=== PATIENT | female | born 1965 | race Caucasian/White ===

== ENCOUNTER 2025-04-01 09:55 | Day surgery (SDC) | payer OTHER ==
[2025-04-01] MEDS ORDERED: LIDOCAINE HCL 2% 100 MG/5 ML IJ ONE (09:56)
[2025-04-01] MEDS ORDERED: methylPREDNISolone acetate IM ONE (09:56)
[2025-04-01] MEDS ORDERED: propofoL IV ONE (12:40)
[2025-04-01] MEDS ORDERED: Lactated Ringers 1,000 ML IV ONE (13:58)
--- NOTE | 2025-04-01 14:30 | XRAY ---
Indication: Bilateral L4-S1 MBB. Intraoperative fluoroscopy provided for 13 seconds. 2 digital spot image submitted for interpretation demonstrates posterior needle tips projecting over expected left and right L4-S1 nerve roots. Correlate with intraoperative findings/report.
--- NOTE | 2025-04-01 14:35 | XRAY ---
13 seconds of fluoroscopy was used in surgery for a bilateral L5-L6, L6-S1 MBB.
== END 2025-04-01 13:15 | disposition home or self-care (01) ==
LOC: SDC-PAIN 09:55
PROVIDERS: ATTEND Psychiatry & Neurology Pain Medicine
DX: M47.817 Spondylosis without myelopathy or radiculopathy, lumbosacral region (principal)